=== PATIENT | female | born 1960 | race Hispanic/Latino ===

== ENCOUNTER 2017-01-31 08:08 | Outpatient (CLI) | payer OTHER ==
--- NOTE | 2017-01-31 09:25 | Mammography Report ---
Bilateral digital screening mammogram with CAD. Comparison study is dated October 04, 2015. Findings: The fiber granular tissue is heterogeneously dense. In the upper right breast, there is a focal parenchymal asymmetry partially secured by the dense parenchyma. Few benign calcifications in the upper right breast are stable. There is no architectural distortion. No focal findings are seen in the left breast. Impression: Right parenchymal asymmetry. BI-RADS code: 0. Recommendation: Spot compression as, 90 degree view, and ultrasound if needed.
== END 2017-01-31 08:09 | disposition home or self-care (01) ==
LOC: SPVWC 08:08
PROVIDERS: ATTEND Obstetrics & Gynecology
DX: Z12.31 Encounter for screening mammogram for malignant neoplasm of breast (principal)
CPT/HCPCS: 77067; G0202

== ENCOUNTER 2017-02-19 13:54 | Outpatient (CLI) | payer OTHER ==
--- NOTE | 2017-02-19 14:20 | Mammography Report ---
RIGHT DIGITAL DIAGNOSTIC MAMMOGRAM : 02/19/17 13:54:00 CLINICAL: Recalled for asymmetry. COMPARISON:01/31/17 screening FINDINGS: True lateral and spot compression MLO views were performed and are negative. Stable calcifications. IMPRESSION: No mammographic evidence of malignancy. BI-RADS CATEGORY: 2 - - Benign RECOMMENDATION: Routine mammographic screening in one year. ACR BI-RADS MAMMOGRAPHIC CODES: 0 = Needs additional imaging evaluation; 1 = Negative; 2 = Benign; 3 = Probably benign; 4 = Suspicious; 5 = Malignant; 6 = Known biopsy-proven malignancy COMMENT: 1. Dense breast tissue, i.e., adenosis, fibrocystic changes, etc., may obscure an underlying neoplasm. 2. Approximately 10% of cancers are not detected with mammography. 3. A negative mammography report should not delay biopsy if a clinically suspicious mass is present. COMMENT: Patient follow-up letters are generated via our [employer] application.
== END 2017-02-19 13:55 | disposition home or self-care (01) ==
LOC: SPVWC 13:54
PROVIDERS: ATTEND Obstetrics & Gynecology
DX: R92.1 Mammographic calcification found on diagnostic imaging of breast (principal)
CPT/HCPCS: G0206-RT

== ENCOUNTER 2018-10-03 08:29 | Outpatient (CLI) | payer OTHER ==
--- NOTE | 2018-10-03 13:34 | Mammography Report ---
BILATERAL DIGITAL SCREENING MAMMOGRAM with CAD: 10/03/18 08:29:00 CLINICAL: Routine screening. COMPARISON:01/31/17 FINDINGS: The breasts are heterogeneously dense, which may obscure small masses. A right inner asymmetry requires additional imaging.No architectural distortion or suspicious calcifications.The left breast is negative. IMPRESSION: Right asymmetry requiring further workup. BI-RADS CATEGORY: 0 -- Additional Imaging Evaluation Required RECOMMENDATION: Recall for right lateralmedial and spot magnification CC views and right breast ultrasound if needed. COMMENT: 1. Dense breast tissue, i.e., adenosis, fibrocystic changes, etc., may obscure an underlying neoplasm. 2. Approximately 10% of cancers are not detected with mammography. 3. A negative mammography report should not delay biopsy if a clinically suspicious mass is present. COMMENT: Patient follow-up letters are generated via our [employer] application.
== END 2018-10-03 08:30 | disposition home or self-care (01) ==
LOC: SPVWC 08:29
PROVIDERS: ATTEND Internal Medicine
DX: Z12.31 Encounter for screening mammogram for malignant neoplasm of breast (principal)
CPT/HCPCS: 77067

== ENCOUNTER 2019-02-10 14:37 | Outpatient (CLI) | payer OTHER ==
--- NOTE | 2019-02-10 15:40 | Mammography Report ---
RIGHT DIGITAL DIAGNOSTIC MAMMOGRAM WITH CAD -- 02/10/2019 RIGHT LIMITED BREAST ULTRASOUND INDICATION: Recall for mammographic asymmetry. ABNORMAL MAMMO TECHNIQUE: Digital right mammographic imaging was performed. Magnification views were obtained. Limi luis daniel ultrasound was performed. This examination was interpreted with the benefit of Computer-Aided Det ection (CAD) analysis. COMPARISON: 10/03/2018 FINDINGS: Breast Density: The breast is heterogeneously dense, which may obscure small masses. MAMMOGRAPHIC FINDINGS: The irregular inner mammographic density persists on a spot magnification view . It demonstrates partial effacement. A lateral view is negative. ULTRASOUND FINDINGS: Targeted ultrasound evaluation was performed of the area of interest. Ultrasou nd of the inner right breast was performed and demonstrated a cyst versus solid mass at 1:00 5 cm fro m the nipple. It has a somewhat angular margin and measures 3 mm maximum. IMPRESSION: A suspicious 3 mm cyst versus solid mass at 1:00 5 cm from the nipple. Recommend ultrasou nd-guided vacuum-assisted needle core biopsy. I discussed the findings and the recommendation for needle biopsy with the patient at the time of the exam. Follow up recommendation: Biopsy BI-RADS Category 4: Suspicious for Malignancy. A "normal" or negative report should not discourage follow up or biopsy of a clinically significant f inding. A written summary of these findings will be mailed to the patient. The patient will be entered into a mammography reporting system which will generate a reminder letter for the patient's next appointmen t at the appropriate interval. According to the [employer], yearly mammograms are recommended starting at age 40 and continuing as long as a woman is in good health. Breast MRI is recommended for women with an aaron roximately 20-25% or greater lifetime risk of breast cancer, including women with a strong family his tory of breast or ovarian cancer and women who have been treated for Hodgkin's disease. Signer Name: Butch Mai MD Signed: 02/10/2019 3:35 PM Workstation Name: [id number]
== END 2019-02-10 14:38 | disposition home or self-care (01) ==
LOC: SPVWC 14:37
PROVIDERS: ATTEND Internal Medicine
DX: R92.8 Other abnormal and inconclusive findings on diagnostic imaging of breast (principal)

== ENCOUNTER 2019-02-26 14:48 | Outpatient (CLI) | payer OTHER ==
--- NOTE | 2019-02-26 16:18 | Ultrasound Report ---
RIGHT BREAST ULTRASOUND LIMITED HISTORY: Patient presented for needle biopsy of a possible solid 3 mm mass at 1:00 5 cm from the nipp le.. TECHNIQUE: Targeted ultrasound was performed of the area of interest.. COMPARISON: 02/10/2019 FINDINGS: Ultrasound demonstrated an oval anechoic cyst at 1:00 5 cm from the nipple measuring 3 x 3 x 2 mm. No solid mass is identified. IMPRESSION: 1. Benign cyst at 1:00 5 cm from the nipple. 2. No lesion to biopsy. Recommend 6 month follow-up targeted right breast ultrasound to reevaluate th e cyst at 1:00 5 cm from the nipple. BI-RADS Category 2: Benign Signer Name: Butch Mai MD Signed: 02/26/2019 4:13 PM Workstation Name: [id number]
== END 2019-02-26 14:49 | disposition home or self-care (01) ==
LOC: SPVWC 14:48
PROVIDERS: ATTEND Internal Medicine
DX: N60.01 Solitary cyst of right breast (principal)

== ENCOUNTER 2019-10-06 08:30 | Outpatient (CLI) | payer BC ==
--- NOTE | 2019-10-06 18:04 | Mammography Report ---
DIGITAL SCREENING MAMMOGRAM WITH CAD, 10/06/2019 INDICATION: Routine screening mammography. TECHNIQUE: Digital bilateral 2D mammography was obtained in the craniocaudal and mediolateral obliq ue projections. This examination was interpreted with the benefit of Computer-Aided Detection analysi s. COMPARISON: 10/03/2018. FINDINGS: Breast Density: The breasts are heterogeneously dense, which may obscure small masses. There is no evidence of dominant mass, suspicious calcifications or architectural distortion in eithe r breast. IMPRESSION: Follow up recommendation: Routine yearly BI-RADS Category 1: Negative. A "normal" or negative report should not discourage follow up or biopsy of a clinically significant f inding. A written summary of these findings will be mailed to the patient. The patient will be entered into a mammography reporting system which will generate a reminder letter for the patient's next appointmen t at the appropriate interval. The [employer] recommends yearly mammograms starting at age 40 and continuing as l ijeoma as a woman is in good health. Breast MRI is recommended for women with an approximate 20-25% or greater lifetime risk of breast cancer, including women with a strong family history of breast or ova melonie cancer or who have been treated for Hodgkin's disease. Signer Name: Luke Cutler MD Signed: 10/06/2019 6:00 PM Workstation Name: [email or web address]
== END 2019-10-06 08:31 | disposition home or self-care (01) ==
LOC: SPVWC 08:30
PROVIDERS: ATTEND Internal Medicine
DX: Z12.31 Encounter for screening mammogram for malignant neoplasm of breast (principal)
CPT/HCPCS: 77067

== ENCOUNTER 2020-10-06 08:01 | Outpatient (CLI) | payer BC ==
--- NOTE | 2020-10-06 09:32 | Mammography Report ---
DIGITAL SCREENING MAMMOGRAM WITH CAD, 10/06/2020 CLINICAL INFORMATION / INDICATION: Routine screening TECHNIQUE: Digital bilateral 2D mammography was obtained in the craniocaudal and mediolateral obliqu e projections. This examination was interpreted with the benefit of Computer-Aided Detection analysis . COMPARISON: 10/06/2019 and prior FINDINGS: Breast Density: The breasts are heterogeneously dense, which may obscure small masses. No dominant mass, suspicious calcifications, or architectural distortion in either breast. Right calcifications are stable. IMPRESSION: No mammographic evidence of malignancy. Follow up recommendation: Routine yearly BI-RADS Category 2: Benign. A "normal" or negative report should not discourage follow up or biopsy of a clinically significant f inding. A written summary of these findings will be mailed to the patient. The patient will be entered into a mammography reporting system which will generate a reminder letter for the patient's next appointmen t at the appropriate interval. The [employer] recommends yearly mammograms starting at age 40 and continuing as l ijeoma as a woman is in good health. Breast MRI is recommended for women with an approximate 20-25% or greater lifetime risk of breast cancer, including women with a strong family history of breast or ova melonie cancer or who have been treated for Hodgkin's disease. Signer Name: Tung Mccann MD Signed: 10/06/2020 9:27 AM Workstation Name: [email or web address]
== END 2020-10-06 08:02 | disposition home or self-care (01) ==
LOC: SPVWC 08:01
PROVIDERS: ATTEND Internal Medicine
DX: Z12.31 Encounter for screening mammogram for malignant neoplasm of breast (principal); N64.89 Other specified disorders of breast
CPT/HCPCS: 77067

== ENCOUNTER 2021-10-11 10:36 | Outpatient (CLI) | payer BC ==
--- NOTE | 2021-10-12 10:27 | Mammography Report ---
DIGITAL SCREENING MAMMOGRAM WITH CAD, 10/11/2021 CLINICAL INFORMATION / INDICATION: Routine screening mammography. TECHNIQUE: Digital bilateral 2D mammography was obtained in the craniocaudal and mediolateral obliqu e projections. This examination was interpreted with the benefit of Computer-Aided Detection analysis . COMPARISON: 10/06/2019 FINDINGS: Breast Density: The breasts are heterogeneously dense, which may obscure small masses. No dominant mass, suspicious calcifications, or architectural distortion in either breast. No interval change. IMPRESSION: No mammographic evidence of malignancy. Follow up recommendation: Routine yearly screening mammogram. BI-RADS Category 1: NEGATIVE A "normal" or negative report should not discourage follow up or biopsy of a clinically significant f inding. A written summary of these findings will be mailed to the patient. The patient will be entered into a mammography reporting system which will generate a reminder letter for the patient's next appointmen t at the appropriate interval. The [employer] recommends yearly mammograms starting at age 40 and continuing as l ijeoma as a woman is in good health. Breast MRI is recommended for women with an approximate 20-25% or greater lifetime risk of breast cancer, including women with a strong family history of breast or ova melonie cancer or who have been treated for Hodgkin's disease. Signer Name: Analia Blum MD Signed: 10/12/2021 10:23 AM Workstation Name: [email or web address]
== END 2021-10-11 10:37 | disposition home or self-care (01) ==
LOC: SPVWC 10:36
PROVIDERS: ATTEND Internal Medicine
DX: Z12.31 Encounter for screening mammogram for malignant neoplasm of breast (principal)
CPT/HCPCS: 77067